=== PATIENT | male | born 1990 | race Two or more races ===

== ENCOUNTER 2017-11-01 10:59 | Emergency (ER) | payer MEDICAID, OTHER ==
[~2017-11-01] VITALS: Ht 170.2 cm; Wt 118.0 kg
[2017-11-01 12:02] LABS: D-DIMER < 0.19 mg/L FEU (<0.50); INR 0.9; PROTHROMBIN TIME 9.7 sec (9.4-11.6)
[2017-11-01 12:22] LABS: CHLORIDE 106 mEq/L (98-107)
[2017-11-01 12:29] LABS: BASOPHILS % 0.6 % (0.0-2.0); HEMATOCRIT. 45.8 % (42.0-52.0); LYMPHOCYTES % 42.7 % (20.0-50.0); MEAN CORPUSCULAR VOLUME 91.7 fL (80.0-94.0); MEAN PLATELET VOLUME 9.6 fl (7.4-10.4); MONOCYTES % 8.4 % (2.0-8.0); NEUTROPHILS % 45.3 % (40.0-76.0); PLATELET 270 x1000/uL (130-400); RED BLOOD CELL COUNT 4.99 mill/uL (4.7-6.1); RED CELL DISTRIBUTION WIDTH 13.6 % (11.6-14.6)
[2017-11-01 13:01] VITALS: BP 162/89
== END 2017-11-01 13:03 | disposition left against medical advice (07) ==
LOC: ER 10:59
DX: R07.89 Other chest pain (principal); R00.0 Tachycardia, unspecified; F17.200 Nicotine dependence, unspecified, uncomplicated; R74.0 Nonspecific elevation of levels of transaminase and lactic acid dehydrogenase [LDH]
CPT/HCPCS: 36415; 71045; 80053; 83880; 84484; 85025; 85379; 85610; 93005; 99285